=== PATIENT | female | born 1970 | race American Indian/Alaskan Native ===

== ENCOUNTER 2017-01-08 06:03 | Inpatient (IN) | payer BC, OTHER ==
[2016-12-31 10:01] LABS: Basophils % (Auto) 0.5 % (0.0-1.8); Eosinophils % (Auto) 1.4 % (0.0-4.3); Hematocrit 44.9 % (30.3-42.9); Hemoglobin 14.5 gm/dl (10.1-14.3); Mean Corpuscular HGB Conc 32 % (30-34); Mean Corpuscular Hemoglobin 28 pg (28-32); Mean Corpuscular Volume 88 fl (79-97); Platelet Count 186 K/mm3 (140-440); Red Blood Count 5.12 M/mm3 (3.65-5.03); Red Cell Distribution Width 14.9 % (13.2-15.2); White Blood Count 6.3 K/mm3 (4.5-11.0)
[2016-12-31 10:11] LABS: INR 0.96 (0.87-1.13); Partial Thromboplastin Time 31.5 Sec. (24.2-36.6)
[2016-12-31 10:18] LABS: Alanine Aminotransferase 8 units/L (7-56); Albumin 3.6 g/dL (3.9-5); Albumin/Globulin Ratio 1.1 %; Alkaline Phosphatase 76 units/L (35-129); Anion Gap 14 mmol/L; BUN/Creatinine Ratio 11.25; Bilirubin,Total 0.4 mg/dL (0.1-1.2); Blood Urea Nitrogen 9 mg/dL (7-17); Calcium 8.8 mg/dL (8.4-10.2); Carbon Dioxide 25 mmol/L (22-30); Chloride 106.3 mmol/L (98-107); Glucose 81 mg/dL (65-100); Potassium 3.7 mmol/L (3.6-5.0); Sodium 142 mmol/L (137-145); Total Protein 6.9 g/dL (6.3-8.2)
--- NOTE | 2017-01-07 18:03 | Admit Criteria Form ---
Admission Criteria Documentation: AMBULATORY SURGERY EXCEPTION CRITERIA Ambulatory Surgery Exception Criteria ( Place 'X' for any and all applicable criteria): Surgery or procedure performed on ambulatory basis may require inpatient stay for[A] ANY ONE of the following(1)(2)(3)(4)(5)(6)(7)(8)(9): [X] I. A preoperative situation, condition, or finding that warrants inpatient stay as indicated by ANY ONE of the following: [X] a) Inpatient care needed because of severity of a disease or condition rather than the surgery (eg, severe cardiac or respiratory disease, severe infection) (15) (16 ) (17) (18) [] b) Emergent procedure (eg, angioplasty for acute ischemia)(19) [] c) Complex surgical approach or situation as indicated by ANY ONE of the following(3): [] i) Open approach needed instead of usual endoscopic, transcatheter, or other less invasive procedure [] ii) Difficult approach because of previous operation [] iii) Airway monitoring required after open neck procedures(20)(21) [] iv) Large mass requiring unusually extensive dissection [] v) Additional complicating feature requiring inpatient care (eg, drain management)(22(23): [] d) Major surgery in a pt with high anesthetic risk as indicated by ANY ONE of the following (2)(3)(5)(7)(8): [] i) ASA risk class III or higher (severe systemic disease impairing function) [D] [] ii) Advanced age (eg, older than 85 years)(14)(24) [] iii) Symptomatic heart failure(25) [] iv) Symptomatic asthma or COPD(8)(21) [] v) Morbid obesity with hemodynamic or respiratory problems(20)( 21)(26)(27) [] vi) Obstructive sleep apnea(20)(21) [] vii) Former premature infants who are younger than 60 weeks [] viii) High risk for severe postoperative abnormalities (eg, severe postoperative hypocalcemia after parathyroidectomy for severe hyperparathyroidism)(27)( 28) [] ix) Unstable angina(25) [] e) Drug-related risk requiring inpatient stay as indicated by ANY ONE of the following(5)(10)(14)(32)(33) [] i) Procedure requires discontinuing drugs or other therapy (eg , antiarrhythmic medication, antiseizure medication), which necessitates inpatient observation or treatment.(18)(31) [] ii) Major surgery and high risk drug use as indicated by ANY ONE of the following: [] 1) Active abuse of cocaine or similar drug [] 2) Monoamine oxidase inhibitor use [] 3) Other drug identified as posing risk [] f) Inadequate outpatient care situation as indicated by ANY ONE of the following(5)(10)(14)(32)(33) [] i) Patient lives remote from medical facility and procedure has urgent complication potential, and temporary nearby residence cannot be arranged [] ii) Patient will have postprocedure incapacitation and inadequate assistance at home, or alternative level of care cannot be arranged. [] iii) Patient will have long general anesthesia or procedure side effect resolution time, and competent person to stay with patient on first postoperative night at home or alternative level of care cannot be arranged. []iv) Other inadequate outpatient situation that cannot be handled by other means [] II. A perioperative event, condition, or finding that warrants inpatient stay as indicated by ANY ONE of the following (1)(2)(3): [] a) Inadequate physiologic recovery: cardiovascular, respiratory, or hemodynamic status not normal or near preoperative baseline(18) [] b) Hemodynamic instability [] c) Patient not alert with near normal or baseline mental status [] d) Temperature not normal or as expected and not appropriate for outpatient treatment of condition [] e) Ambulatory or appropriate activity level status not yet achieved post procedure [E](34)(35)(36) [] f) Operative site not appropriate (eg, unexpected or excessive drainage or bleeding) [] g) Postoperative effects not resolved or adequately managed (eg, significant pain or vomiting not appropriate for outpatient or next level of care)(10)(12) [] h) Complicating features requiring inpatient care as indicated by ANY ONE of the following(37): [] i) Severe complications of procedure (eg, bowel injury, airway compromise, vascular injury,severe hemorrhage) [] ii) Extensive (eg, dissection far beyond usual scope of procedure ) or prolonged (eg, 120 minutes beyond usual) surgery needed requiring inpatient postoperative care [] iii) Conversion to an open or complex procedure that requires inpatient care (eg, open vs laparoscopic cholecystectomy, abdominal vs vaginal hysterectomy)(38) [] iv) Comorbid condition or test result identified during or post procedure that requires inpatient care (7) [] v) Malignant hyperthermia(30) [] vi) Other complicating feature requiring inpatient care(22)(23) Inpatient stay may be needed until ALL of the following are present (1)(2)(3)(4) (5)(6)(10)(14)(33)(40): []a) Physiologic recovery: cardiovascular, respiratory, and hemodynamic status normal or near preoperative baseline []b) Hemodynamic stability []c) Patient alert, with near normal or baseline mental status []d) Temperature appropriate: patient afebrile or temperature appropriate for outpt treatment of condition []e) Activity level appropriate: ambulatory or appropriate activity level post procedure []f) Operative site appropriate as indicated by ALL of the following: []i) Site dry or with expected drainage []ii) Any blood noted is as expected for procedure. []g) Postoperative effects resolved or managed as indicated by ALL of the following: []i) Pain management appropriate for outpatient (or next level of) care(10) []ii) Minimal nausea and vomiting: if present, successfully treated with oral medication(12) []iii) Headache, dizziness, or drowsiness (if present) are mild. []h) Voiding status acceptable as indicated by ANY ONE of the following: []i) Voiding spontaneously []ii) No voiding but instructions given for follow-up in 6 to 8 hours []iii) Urinary catheter in place, and instructions given for follow-up []i) Complicating features requiring inpatient care manageable at a lower level of care(37) []j) Comorbid conditions manageable at a lower level of care(37) The original [employer] content created by [employer] has been revised. The portions of the content which have been revised are identified through the use of italic text or in bold, and [email or web address] has neither reviewed nor approved the modified material. All other unmodified content is copyright [employer]. Please see references footnoted in the original [employer] edition 2016 Admission Criteria Met: Yes
[~2017-01-08 06:03] MED LIST: NEURONTIN PO NR; PEPCID PO NR; VANCOMYCIN/NS 1 GM/250 ML 1 GM/250 ML BAG IV NR; VERSED IV NR
[2017-01-08] MEDS ORDERED: NACL BACTERIOSTATIC INFILTRATI ONE (06:38)
[2017-01-08] MEDS ORDERED: XYLOCAINE MPF 2% ONE (06:40)
[2017-01-08] MEDS ORDERED: DILAUDID ONE (06:40)
[2017-01-08] MEDS ORDERED: DIPRIVAN 10 MG/ML IV ONE (06:40)
[2017-01-08] MEDS: NACL 0.9% 1000 ML 1,000 ML IV SCH ×2 (06:54→14:25)
--- NOTE | 2017-01-08 07:03 | Anesthesia Day of Surgery ---
Anesthesia Day of Surgery - Day of Surgery Patient Examined: Yes Patient H&P Reviewed: Yes Patient is NPO: Yes
--- NOTE | 2017-01-08 07:09 | Anesthesia Consultation ---
Anesthesia Consult and Med Hx - Airway Anesthetic Teeth Evaluation: Good ROM Head & Neck: Adequate Mental/Hyoid Distance: Adequate Mallampati Class: Class II Intubation Access Assessment: Probably Good - Pulmonary Exam CTA: Yes - Cardiac Exam Cardiac Exam: RRR - Pre-Operative Health Status ASA Pre-Surgery Classification: ASA2 Proposed Anesthetic Plan: Epidural, Spinal Nerve Block: Femoral - Pulmonary Hx Smoking: No Hx Sleep Apnea: No (DUSTIN PRE SCREEN LOW RISK) - Cardiovascular System Hx Hypertension: No - Other Systems Hx Cancer: No Hx Obesity: Yes (BMI >40) - Additional Comments Anesthesia Medical History Comments: NPO after MN. BMI >40. No prior anesthesia complications
[2017-01-08] MEDS ORDERED: MARCAINE-EPI 0.5%-1:200,000 INFILTRATI ONE ×2 (07:11→09:27)
[2017-01-08] MEDS ORDERED: DECADRON ONE ×2 (07:11→08:05)
[2017-01-08] MEDS ORDERED: MORPHINE ONE (07:28)
[2017-01-08] MEDS ORDERED: TRANEXAMIC ACID ONE (07:30)
[2017-01-08] MEDS ORDERED: CLONIDINE 1,000 MCG/10 ML VIAL EP ONE (07:30)
[2017-01-08] MEDS ORDERED: ZOFRAN ONE (08:05)
[2017-01-08] MEDS ORDERED: NEO SYNEPHRINE/NS Syringe(OR USE) IV ONE (08:35)
[2017-01-08] MEDS ORDERED: ePHEDrine SULFATE ONE (09:10)
[2017-01-08] MEDS ORDERED: NACL P/F VIAL (10 ML) 10 ML ONE (09:10)
[2017-01-08] MEDS ORDERED: NACL 0.9% IR ONE (09:25)
[2017-01-08] MEDS ORDERED: NEOSPORIN GU IR ONE (09:25)
[2017-01-08] MEDS ORDERED: MORPHINE IM ONE ×2 (09:26)
[2017-01-08] MEDS ORDERED: DEPO-MEDROL INTRA-ARTI ONE ×2 (09:26)
[2017-01-08] MEDS ORDERED: TORADOL IV ONE ×2 (09:26)
[2017-01-08] MEDS ORDERED: NACL IRRIGATION ONE (09:27)
[2017-01-08] MEDS ORDERED: VANCOMYCIN VIAL IRRIGATION ONE (09:35)
--- NOTE | 2017-01-08 10:53 | Procedure Note ---
Date of procedure: 01/08/17 Pre-op diagnosis: bilateral DJD of the knee; Chronic syniovitis Post-op diagnosis: same Procedure: Bilateral TKR; Complete knee synovectomy Surgeon: DARRIUS MATHIAS Dental Service Technician: JUAN ALBERTO REYNA Estimated blood loss: minimal Pathology: none Specimen disposition: discarded Condition: stable Disposition: floor
[2017-01-08] MEDS ORDERED: DULCOLAX PR PRN (11:00)
[2017-01-08] MEDS ORDERED: PHENERGAN PR PRN (11:00)
[2017-01-08] MEDS ORDERED: ZOFRAN IV PRN (11:00)
[2017-01-08] MEDS ORDERED: SODIUM CHLORIDE FLUSH SYRINGE 10 ML IV PRN (11:00)
[2017-01-08] MEDS ORDERED: LACTATED RINGERS 1,000 ML ONE ×2 (11:22→12:30)
[2017-01-08] MEDS ORDERED: TYLENOL PO PRN (11:30)
[2017-01-08] MEDS ORDERED: MILK OF MAGNESIA PO PRN (11:30)
[2017-01-08] MEDS ORDERED: PERCOCET 5/325 PO PRN (12:00)
--- NOTE | 2017-01-08 12:03 | Post Anesthesia Evaluation ---
- Post Anesthesia Evaluation Patient Participated: Yes Airway Patent: Yes Stable Respiratory Function: Yes Nausea/Vomiting: No Temp > 96.8F: Yes Pain Manageable: Yes Adequeate Hydration: Yes Anesthesia Complications: No
[2017-01-08] MEDS: ANCEF/NS 1 GM/50 ML 1 GM/50 ML BAG IV SCH ×2 (14:26→22:35)
[2017-01-08] MEDS: D5NS 1,000 ML IV SCH (14:55)
--- NOTE | 2017-01-08 17:23 | Consultation ---
History of Present Illness - Reason for Consult Consult date: 01/08/17 Medical management Requesting physician: DARRIUS MATHIAS - History of Present Illness Bilateral TKR; Complete knee synovectomy -Post op doing well Past History Past Medical History: arthritis Past Surgical History: total knee replacement Social history: no significant social history, lives with family Family history: no significant family history Medications and Allergies Allergies Allergy/AdvReac Type Severity Reaction Status Date / Time No Known Allergies Allergy Verified 12/26/16 17:36 Home Medications Medication Instructions Recorded Confirmed Last Taken Type Ibuprofen [Motrin 800 MG tab] 800 mg PO PRN PRN 12/26/16 01/08/17 12/30/16 History Chrom Mynor/Brindal Trinh [Garcinia 1 tab PO BID 01/08/17 01/08/17 12/29/16 History Cambogia Tablet] Chromium/Herbal Complex No.238 1 tab PO BID 01/08/17 01/08/17 12/29/16 History [Green Tea Caplet] Active Meds: Active Medications Acetaminophen (Tylenol) 650 mg PO Q4H PRN PRN Reason: Pain MILD(1-3)/Fever >100.5/REZA Acetaminophen/Hydrocodone Bitart ([place] 5/325) 1 each PO Q6H PRN PRN Reason: Pain, Moderate (4-6) Bisacodyl (Dulcolax) 10 mg NE QDAY PRN PRN Reason: Constip unreliev by MOM/or NPO Celecoxib (Celebrex) 200 mg PO PREOP NR Stop: 01/08/17 23:59 Last Admin: 01/08/17 06:43 Dose: 200 mg Celecoxib (Celebrex) 100 mg PO BID MIT[facility]LL Docusate Sodium (Colace) 100 mg PO BID MIT[facility]LL Enoxaparin Sodium (Lovenox) 40 mg SUB-Q QDAY [facility] Famotidine (Pepcid) 20 mg PO PREOP NR Stop: 01/08/17 23:59 Last Admin: 01/08/17 06:42 Dose: 20 mg Gabapentin (Neurontin) 600 mg PO PREOP NR Stop: 01/08/17 23:52 Last Admin: 01/08/17 06:42 Dose: 600 mg Vancomycin HCl (Vancomycin/Ns 1 Gm/250 Ml) 1 gm in 250 mls @ 167.007 mls/hr IV PREOP NR PRN Reason: Protocol Stop: 01/08/17 23:59 Last Admin: 01/08/17 07:15 Dose: 167.007 mls/hr Sodium Chloride (Nacl 0.9% 1000 Ml) 1,000 mls @ 75 mls/hr IV DIRECT MITCHELL Last Admin: 01/08/17 14:25 Dose: 75 mls/hr Cefazolin Sodium (Ancef/Ns 1 Gm/50 Ml) 1 gm in 50 mls @ 100 mls/hr IV Q8H [facility]LL Stop: 01/08/17 20:29 Last Admin: 01/08/17 14:26 Dose: 100 mls/hr Dextrose/Sodium Chloride (D5ns) 1,000 mls @ 125 mls/hr IV DIRECT MITCHELL Last Admin: 01/08/17 14:55 Dose: 125 mls/hr Magnesium Hydroxide (Milk Of Magnesia) 30 ml PO Q4H PRN PRN Reason: Constipation Midazolam HCl (Versed) 2 mg IV PREOP NR Stop: 01/08/17 23:59 Last Admin: 01/08/17 07:14 Dose: 2 mg Morphine Sulfate (Morphine) 2 mg IV Q4H PRN PRN Reason: Pain, Moderate (4-6) Morphine Sulfate (Morphine) 4 mg IV Q4H PRN PRN Reason: Pain , Severe (7-10) Multivitamins (Theragran Tab) 1 each PO QDAY [facility] Ondansetron HCl (Zofran) 4 mg IV Q8H PRN PRN Reason: Nausea And Vomiting Last Admin: 01/08/17 14:26 Dose: 4 mg Oxycodone HCl (Oxycontin) 10 mg PO Q12HR [facility] Oxycodone/Acetaminophen (Percocet 5/325) 1 tab PO Q6H PRN PRN Reason: Pain, Moderate (4-6) Promethazine HCl (Phenergan) 25 mg NE Q6H PRN PRN Reason: Nausea And Vomiting Sodium Chloride (Sodium Chloride Flush Syringe 10 Ml) 10 ml IV PRN PRN PRN Reason: LINE FLUSH Stop: 01/18/17 10:59 Zolpidem Tartrate (Ambien) 5 mg PO QHS PRN PRN Reason: Sleep Review of Systems All systems: negative Constitutional: no weight loss, no weight gain Ears, nose, mouth and throat: no nasal congestion, no nasal discharge, no sinus pressure, no sinus pain Cardiovascular: no chest pain, no orthopnea, no palpitations Respiratory: no cough, no cough with sputum, no excessive sputum, no hemoptysis Gastrointestinal: no abdominal pain, no nausea, no vomiting, no diarrhea, no constipation Genitourinary Female: no flank pain, no dysuria, no urinary frequency, no urgency Musculoskeletal: no neck stiffness, no neck pain Integumentary: no rash, no pruritis, no redness Neurological: no seizures, no syncope Psychiatric: no suicidal ideation, no depression Endocrine: no cold intolerance, no heat intolerance, no polyphagia, no excessive thirst Hematologic/Lymphatic: no easy bruising, no easy bleeding Allergic/Immunologic: no urticaria, no allergic rhinitis, no wheezing Exam - Constitutional Vitals: Temp Pulse Resp BP Pulse Ox 97.7 F 70 18 102/60 98 01/08/17 15:51 01/08/17 15:51 01/08/17 15:51 01/08/17 15:51 01/08/17 13:00 General appearance: Present: no acute distress, well-nourished - EENT Eyes: Present: PERRL ENT: hearing intact, clear oral mucosa - Neck Neck: Present: supple, normal ROM - Respiratory Respiratory effort: normal Respiratory: bilateral: CTA - Cardiovascular Heart Sounds: Present: S1 & S2. Absent: rub, click - Extremities Extremities: pulses symmetrical, No edema Peripheral Pulses: within normal limits - Abdominal General gastrointestinal: Present: soft, non-tender, non-distended, normal bowel sounds Female genitourinary: Present: normal - Integumentary Integumentary: Present: clear, warm, dry - Musculoskeletal Musculoskeletal: gait normal, strength equal bilaterally - Psychiatric Psychiatric: appropriate mood/affect, intact judgment & insight - Neurologic Neurologic: CNII-XII intact, moves all extremities Results - Labs CBC & Chem 7: 12/31/16 09:40 12/31/16 09:40 Assessment and Plan - Patient Problems (1) Acute arthritis Current Visit: Yes Status: Chronic Plan to address problem: NSAIDS as necessary (2) Status post total knee replacement, bilateral Current Visit: Yes Status: Acute Plan to address problem: PT/pain management (3) DVT prophylaxis Current Visit: Yes Status: Acute Plan to address problem: On SCD's
[2017-01-08] MEDS ORDERED: AMBIEN PO PRN (22:00)
--- NOTE | 2017-01-08 23:14 | Operative Report ---
PREOPERATIVE DIAGNOSES: 1. Bilateral osteoarthritis of the knee. 2. Chronic synovitis. 3. Obesity. POSTOPERATIVE DIAGNOSES: 1. Bilateral osteoarthritis of the knee. 2. Chronic synovitis. 3. Obesity. PROCEDURE: 1. Total knee replacement arthroplasty on the right with complete synovectomy. 2. Total knee replacement on the left with complete synovectomy. SURGEON: Polo Hatch MD. DATA ANALYST REPORT WRITER: Alvaro Muniz MD SECOND DATA ANALYST REPORT WRITER: Bridger Galindo RN ANESTHESIA: Local block, general. COMPLICATIONS: None. INDICATIONS: This patient is a patient who has been seen and following the office for quite some time, who has severe degenerative arthritis of both knee joints, the patient is being seen and following the office conservatively for the last three years; however, the patient has symptoms that have gotten progressively worse. The patient is indicated for replacement arthroplasty of the knee. The patient understands that because of her age, the patient may require an eventual exploration of the knee and redo arthroplasty in the future. PROCEDURE IN DETAIL: Once the patient was in the surgical room, a time-out was carried out to identify the patient and procedure. Once it was done, the patient was prepped and draped in usual fashion for prepping both lower extremities. Tourniquets were placed high up in the legs. Once this was carried out, the right leg was elevated. The tourniquet inflated to 350 mmHg. The procedure was then done. The procedure was carried out on the right knee, making a straight incision in the front of the knee. ____. Dissection carried out to allow full exposure of the medial and lateral parapatellar area of the knee. A long medial parapatellar incision was carried out entering the joint. The patella was released, following this, the patient underwent appropriate releases to mobilize the patella, following that, the patient underwent a complete synovectomy of the knee. The synovium of the knee was quite angry and swollen, once resected by separation of the synovial layer from the capsule of the knee joint. It was done in a sequential basis beginning on the top and dissection was done to the medial and lateral gutters. Once this area was removed from the joint, the patella was everted and the knee brought in place and placed in flexion. The finishing of the synovectomy was to be done once the central portion of the knee was cut. Using the [employer] knee system, the procedure was continued by drilling a hole in the center portion of the femur. Following this, by the insertion of the central intramedullary guide for the femur, however, the femur was measured and cut to a size 72.5. Following that, the procedure was continued by the insertion of a lamina suction plate roller hand, cleaning out of the menisci and loose bodies in the front and the center portion of the knee joint, following that, the tibia was cut. The tibia was cut and prepared using the extramedullary guide. The tibia was cut to a size 75. Once this was done, the lamina suction plate roller hand was placed in the center of the joint and the completion of synovectomy was done. The patella was measured and cut to a size 31. Once this was carried out, trialing of the knee was carried out with trialing of components and it was decided that the 14 tibial bearing fitted the best. Once this was done, all the components were removed from the joint. The knee was irrigated. The knee was infiltrated with dilute solution of Marcaine and the posterior aspect of the gutters, following that, using acrylic cement, fixation of all the components into the joint was done. Once the knee was fully assembled and put through full range of motion, the knee was found to be stable both in flexion and extension. The patella tracked well. The procedure was continued at this point by using tranexamic acid 1 gram 30 mL of saline solution for irrigation followed by closure of the knee capsule with #1 Vicryl in multiple interrupted sutures. The subcutaneous tissues were closed in the same fashion. The skin was closed with skin clips. Once this was carried out compression bandage was applied. The knee was infiltrated with morphine, Depo-Medrol. At this point, the procedure was carried out to the left knee. The table was draped and redraped, and following that, the knee was placed in flexion, this second knee on the posterior in the left was carried out. The knee was elevated, exsanguination carried out the incision made in the similar procedure with a long medial parapatellar incision was carried out into the joint. The synovectomy of the knee on the left knee was carried out in the same fashion. Using the [employer] instrumentation, the femur was cut to a size 70, the tibia to a size 75, the patella to a size 31 with a 12 mm tibial bearing. After irrigation and cleaning out of the joint this component were inserted into the medial knee and the knee was ensembled and fixed in position. The procedure was then continued by closure of the knee joint in the same fashion with tranexamic acid, #1 Vicryl, #2-0 Vicryl and skin clips. Once it was carried out, a long knee brace were applied with a coat of compression bandage. The patient supported procedure well. There were no complications. JOB# [id number] CINTIA/KIESHA
[2017-01-09] MEDS: COLACE PO SCH ×3 (00:29→21:55)
[2017-01-09] MEDS: NORCO 5/325 PO PRN ×3 (00:47→17:30)
[2017-01-09] MEDS: OxyCONTIN PO SCH ×3 (05:58→21:55)
[2017-01-09] MEDS: D5NS 1,000 ML IV SCH (06:05)
--- NOTE | 2017-01-09 10:02 | Progress Note ---
Subjective Date of service: 01/09/17 Objective Vital signs: Vital Signs - 12hr 01/09/17 01/09/17 01/09/17 00:01 00:47 08:00 Temperature 97.8 F 97.7 F Pulse Rate [ 70 Right From Monitor] Respiratory 16 18 Rate Blood Pressure 136/50 [Left Arm] O2 Sat by Pulse 95 Oximetry 01/09/17 08:10 Temperature Pulse Rate [ Right From Monitor] Respiratory Rate Blood Pressure [Left Arm] O2 Sat by Pulse 98 Oximetry - Labs CBC & BMP: 12/31/16 09:40 12/31/16 09:40
[2017-01-09] MEDS: MORPHINE IV PRN ×3 (10:30→21:00)
[2017-01-09] MEDS: THERAGRAN Tab PO SCH (11:51)
[2017-01-09] MEDS: LOVENOX SUB-Q SCH (11:53)
--- NOTE | 2017-01-09 14:03 | Consultation ---
History of Present Illness - Reason for Consult Consult date: 01/09/17 Evaluate for Acute IRU - History of Present Illness 46 y.o. morbidly obese female admitted for bilateral TKA. Pt reports progressively worsening pain in bilateral knees due to severe degenerative arthritis; failed outpatient conservative treatment. Pt is POD#1 bilateral TKA. Pt reports some lightheadedness with initial standing on today; pain rated 9/10. Also reports poor appetite. Pt was able to participate with PT on today. Consult requested for post-acute placement recommendations. Past History Past Medical History: arthritis Past Surgical History: hysterectomy, total knee replacement (bilateral) Social history: lives with family (sons). denies: smoking, alcohol abuse Family history: diabetes, hypertension Medications and Allergies Allergies Allergy/AdvReac Type Severity Reaction Status Date / Time No Known Allergies Allergy Verified 12/26/16 17:36 Home Medications Medication Instructions Recorded Confirmed Last Taken Type Ibuprofen [Motrin 800 MG tab] 800 mg PO PRN PRN 12/26/16 01/08/17 12/30/16 History Chrom Mynor/Brindal Trinh [Garcinia 1 tab PO BID 01/08/17 01/08/17 12/29/16 History Cambogia Tablet] Chromium/Herbal Complex No.238 1 tab PO BID 01/08/17 01/08/17 12/29/16 History [Green Tea Caplet] Active Meds: Active Medications Acetaminophen (Tylenol) 650 mg PO Q4H PRN PRN Reason: Pain MILD(1-3)/Fever >100.5/REZA Acetaminophen/Hydrocodone Bitart ([place] 5/325) 1 each PO Q6H PRN PRN Reason: Pain, Moderate (4-6) Last Admin: 01/09/17 11:49 Dose: 1 each Bisacodyl (Dulcolax) 10 mg ID QDAY PRN PRN Reason: Constip unreliev by MOM/or NPO Celecoxib (Celebrex) 100 mg PO BID [facility] Last Admin: 01/09/17 11:47 Dose: 100 mg Docusate Sodium (Colace) 100 mg PO BID [facility] Last Admin: 01/09/17 11:51 Dose: 100 mg Enoxaparin Sodium (Lovenox) 40 mg SUB-Q QDAY [facility] Last Admin: 01/09/17 11:53 Dose: 40 mg Sodium Chloride (Nacl 0.9% 1000 Ml) 1,000 mls @ 75 mls/hr IV DIRECT [facility] Last Admin: 01/08/17 14:25 Dose: 75 mls/hr Dextrose/Sodium Chloride (D5ns) 1,000 mls @ 125 mls/hr IV DIRECT [facility] Last Admin: 01/09/17 06:05 Dose: 125 mls/hr Magnesium Hydroxide (Milk Of Magnesia) 30 ml PO Q4H PRN PRN Reason: Constipation Morphine Sulfate (Morphine) 2 mg IV Q4H PRN PRN Reason: Pain, Moderate (4-6) Morphine Sulfate (Morphine) 4 mg IV Q4H PRN PRN Reason: Pain , Severe (7-10) Multivitamins (Theragran Tab) 1 each PO QDAY [facility] Last Admin: 01/09/17 11:51 Dose: 1 each Ondansetron HCl (Zofran) 4 mg IV Q8H PRN PRN Reason: Nausea And Vomiting Last Admin: 01/08/17 14:26 Dose: 4 mg Oxycodone HCl (Oxycontin) 10 mg PO Q12HR [facility] Last Admin: 01/09/17 11:50 Dose: 10 mg Oxycodone/Acetaminophen (Percocet 5/325) 1 tab PO Q6H PRN PRN Reason: Pain, Moderate (4-6) Promethazine HCl (Phenergan) 25 mg ID Q6H PRN PRN Reason: Nausea And Vomiting Sodium Chloride (Sodium Chloride Flush Syringe 10 Ml) 10 ml IV PRN PRN PRN Reason: LINE FLUSH Stop: 01/18/17 10:59 Zolpidem Tartrate (Ambien) 5 mg PO QHS PRN PRN Reason: Sleep Review of Systems All systems: negative Constitutional: poor appetite Ears, nose, mouth and throat: no headache Cardiovascular: lightheadedness, no chest pain Gastrointestinal: no nausea, no vomiting Genitourinary Female: other (zendejas in place) Musculoskeletal: gait dysfunction, other (bilateral post-op knee pain; RLE swelling>LLE) Exam - Constitutional Vitals: Vital Signs - 12hr 01/09/17 01/09/17 08:00 08:10 Temperature 97.7 F Pulse Rate [ 70 Right From Monitor] Respiratory 18 Rate Blood Pressure 136/50 [Left Arm] O2 Sat by Pulse 95 98 Oximetry General appearance: no acute distress, obese - EENT Eyes: EOM intact ENT: hearing intact - Neck Neck: supple, normal ROM - Respiratory Respiratory effort: normal Respiratory: bilateral: CTA - Cardiovascular Rhythm: regular Heart Sounds: Present: S1 & S2 - Extremities Extremity abnormal: edema (RLE>LLE), other (Bilateral knee immobilizers with post-op dressings remain in place; intact ankle DF/PF bilaterally; moves UE without difficulty) - Gastrointestinal General gastrointestinal: Present: soft, non-tender, non-distended, normal bowel sounds - Neurologic Neurologic: CNII-XII intact - Psychiatric Psychiatric: appropriate mood/affect, intact judgment & insight, memory intact, cooperative - Allied health notes Allied health notes reviewed: PT (maxA fro transfers; min/CGA 80 feet with RW) FIMS assesment as documented by PT/OT/ST: Locomotion- walk/wheelchair Ambulation Distance 0 - Labs CBC & Chem 7: 12/31/16 09:40 12/31/16 09:40 Assessment and Plan Patient was assessed and evaluated for Acute Inpatient Rehab Unit. 46 y.o. morbidly obese female s/p bilateral TKAs secondary to bilateral OA. Pt is noted to have functional deficits with mobility and would benefit from IRU admission to address strengthening, ROM, gait training, stairs, self cares. Pt has been participating well in PT and is thought to be able to tolerate 3 hours of therapy/day, 5 days per week; she has good overall medical prognosis and is thought to be able to make good functional improvement to return home at discharge. Pt was independent with functional mobility and self cares prior to admission; now requires maxA for transfers, min/CGA for gait with RW; currently a falls risk. Pt will require pre-certification and this will be initiated on today. Will continue to follow. Thank you for consultation. - Patient Problems (1) Acute arthritis Current Visit: Yes Status: Chronic (2) Status post total knee replacement, bilateral Current Visit: Yes Status: Acute (3) Unsteady gait Current Visit: Yes Status: Acute (4) Morbid obesity due to excess calories Current Visit: Yes Status: Acute
--- NOTE | 2017-01-09 15:08 | Progress Note ---
Subjective Date of service: 01/09/17 Interval history: 1st POD after bilateral knee replacement Patient is in the bed, relatively comfortable. Pain is mostly controlled with pain meds. Ambulated with physical therapist. No nausea or vomiting. No anesthesia complications Objective - Constitutional Vitals: Vital Signs - 12hr 01/09/17 01/09/17 01/09/17 08:00 08:10 10:30 Temperature 97.7 F Pulse Rate [ 70 Right From Monitor] Respiratory 18 20 Rate Blood Pressure 136/50 [Left Arm] O2 Sat by Pulse 95 98 Oximetry 01/09/17 13:55 Temperature Pulse Rate [ Right From Monitor] Respiratory 20 Rate Blood Pressure [Left Arm] O2 Sat by Pulse Oximetry - Labs CBC & Chem 7: 12/31/16 09:40 12/31/16 09:40
--- NOTE | 2017-01-09 22:14 | Progress Note ---
Assessment and Plan Assessment and plan: 1. OA bilat knee - s/p bilat knee replaceent 01/08; started PT today; on pain control medications 2. Obesity - counseled regarding importance of losing weight and lifestyle changes 3. DVT prophylaxis - lovenox History Interval history: s/p bilat knee replacement; c/o pain after working with PT Hospitalist Physical - Constitutional Vitals: Temp Pulse Resp BP Pulse Ox 98.9 F 78 20 101/56 97 01/09/17 15:55 01/09/17 15:55 01/09/17 17:30 01/09/17 15:55 01/09/17 20:40 General appearance: Present: no acute distress, obese - EENT Eyes: Present: EOM intact - Neck Neck: Present: supple, normal ROM. Absent: masses or JVD - Respiratory Respiratory effort: normal Respiratory: bilateral: CTA, negative: rhonchi, wheezing - Cardiovascular Rhythm: regular Heart Sounds: Present: S1 & S2. Absent: systolic murmur - Extremities Extremities: no ischemia - Integumentary Integumentary: Present: warm, dry. Absent: jaundice, rash - Psychiatric Psychiatric: cooperative - Neurologic Neurologic: no focal deficits, other (limited ROM due to pain) Results - Labs CBC & Chem 7: 12/31/16 09:40 12/31/16 09:40 Labs: Laboratory Last Values WBC 6.3 K/mm3 (4.5-11.0) 12/31/16 09:40 RBC 5.12 M/mm3 (3.65-5.03) H 12/31/16 09:40 Hgb 14.5 gm/dl (10.1-14.3) H 12/31/16 09:40 Hct 44.9 % (30.3-42.9) H 12/31/16 09:40 MCV 88 fl (79-97) 12/31/16 09:40 MCH 28 pg (28-32) 12/31/16 09:40 MCHC 32 % (30-34) 12/31/16 09:40 RDW 14.9 % (13.2-15.2) 12/31/16 09:40 Plt Count 186 K/mm3 (140-440) 12/31/16 09:40 Lymph % (Auto) 27.5 % (13.4-35.0) 12/31/16 09:40 Henry % (Auto) 9.6 % (0.0-7.3) H 12/31/16 09:40 Eos % (Auto) 1.4 % (0.0-4.3) 12/31/16 09:40 Baso % (Auto) 0.5 % (0.0-1.8) 12/31/16 09:40 Lymph # 1.7 K/mm3 (1.2-5.4) 12/31/16 09:40 Henry # 0.6 K/mm3 (0.0-0.8) 12/31/16 09:40 Eos # 0.1 K/mm3 (0.0-0.4) 12/31/16 09:40 Baso # 0.0 K/mm3 (0.0-0.1) 12/31/16 09:40 Seg Neutrophils % 61.0 % (40.0-70.0) 12/31/16 09:40 Seg Neutrophils # 3.9 K/mm3 (1.8-7.7) 12/31/16 09:40 PT 12.7 Sec. (12.2-14.9) 12/31/16 09:40 INR 0.96 (0.87-1.13) 12/31/16 09:40 APTT 31.5 Sec. (24.2-36.6) 12/31/16 09:40 Sodium 142 mmol/L (137-145) 12/31/16 09:40 Potassium 3.7 mmol/L (3.6-5.0) 12/31/16 09:40 Chloride 106.3 mmol/L (98-107) 12/31/16 09:40 Carbon Dioxide 25 mmol/L (22-30) 12/31/16 09:40 Anion Gap 14 mmol/L 12/31/16 09:40 BUN 9 mg/dL (7-17) 12/31/16 09:40 Creatinine 0.8 mg/dL (0.7-1.2) 12/31/16 09:40 Estimated GFR > 60 ml/min 12/31/16 09:40 BUN/Creatinine Ratio 11.25 % 12/31/16 09:40 Glucose 81 mg/dL (65-100) 12/31/16 09:40 Calcium 8.8 mg/dL (8.4-10.2) 12/31/16 09:40 Total Bilirubin 0.4 mg/dL (0.1-1.2) 12/31/16 09:40 AST 12 units/L (5-40) 12/31/16 09:40 ALT 8 units/L (7-56) 12/31/16 09:40 Alkaline Phosphatase 76 units/L (35-129) 12/31/16 09:40 Total Protein 6.9 g/dL (6.3-8.2) 12/31/16 09:40 Albumin 3.6 g/dL (3.9-5) L 12/31/16 09:40 Albumin/Globulin Ratio 1.1 % 12/31/16 09:40
[2017-01-10] MEDS: MORPHINE IV PRN ×2 (03:00→09:29)
[2017-01-10] MEDS: COLACE PO SCH (09:02)
[2017-01-10] MEDS: OxyCONTIN PO SCH (09:03)
[2017-01-10] MEDS: LOVENOX SUB-Q SCH (09:04)
[2017-01-10] MEDS: THERAGRAN Tab PO SCH (09:04)
[2017-01-10] MEDS: NORCO 5/325 PO PRN (13:35)
--- NOTE | 2017-01-10 14:18 | Progress Note ---
Assessment and Plan alert orientated, OOB; s/p Bilateral TKR Wounds Ok, pain well controlled. Doing well Waiting for Rehab Subjective Date of service: 01/10/17 Objective Vital signs: Vital Signs - 12hr 01/10/17 08:00 Temperature 98.1 F Pulse Rate [ 80 Right From Monitor] Respiratory 18 Rate Blood Pressure 129/65 [Right Arm] O2 Sat by Pulse 98 Oximetry - Labs CBC & BMP: 12/31/16 09:40 12/31/16 09:40
[2017-01-10 15:55] VITALS: BP 134/72
== END 2017-01-10 18:00 | DRG 462 ==
LOC: 3A 06:03 → 2B-SURG 11:31
PROC: 0SRD0J9 Replacement of Left Knee Joint with Synthetic Substitute, Cemented, Open Approach (ICD-10-PCS; principal; 2017-01-08)
PROC: 0SRC0J9 Replacement of Right Knee Joint with Synthetic Substitute, Cemented, Open Approach (ICD-10-PCS; 2017-01-08)
PROC: 0SBD0ZZ Excision of Left Knee Joint, Open Approach (ICD-10-PCS; 2017-01-08)
PROC: 0SBC0ZZ Excision of Right Knee Joint, Open Approach (ICD-10-PCS; 2017-01-08)
DX: M17.0 Bilateral primary osteoarthritis of knee (principal); Z68.41 Body mass index [BMI] 40.0-44.9, adult; R26.81 Unsteadiness on feet; E66.01 Morbid (severe) obesity due to excess calories; M65.88 Other synovitis and tenosynovitis, other site; Z90.710 Acquired absence of both cervix and uterus; Z82.49 Family history of ischemic heart disease and other diseases of the circulatory system; Z83.3 Family history of diabetes mellitus; Z71.3 Dietary counseling and surveillance
CPT/HCPCS: 36415; 62324; 64450; 80053; 85025; 85610; 85730; 88305; 94760; A4217; C1776; J0690; J0735; J1030; J1100; J1170; J1650; J1885; J2250; J2270; J2370; J2405; J2704; J3370; J7030; J7042; J7120

== ENCOUNTER 2017-01-10 21:49 | Inpatient (IN) | payer BC ==
[2017-01-10] MEDS ORDERED: MILK OF MAGNESIA PO PRN (21:53)
[2017-01-10] MEDS ORDERED: TYLENOL PO PRN (21:53)
[2017-01-10] MEDS ORDERED: DULCOLAX PR PRN (21:53)
[2017-01-10] MEDS ORDERED: AMBIEN PO PRN (21:56)
[2017-01-10] MEDS: OxyCONTIN PO SCH (23:33)
[2017-01-10] MEDS: COLACE FEEDTUBE SCH (23:36)
[2017-01-11 05:17] LABS: Basophils % (Auto) 0.5 % (0.0-1.8); Eosinophils % (Auto) 2.4 % (0.0-4.3); Hematocrit 33.5 % (30.3-42.9); Hemoglobin 11.2 gm/dl (10.1-14.3); Mean Corpuscular HGB Conc 33 % (30-34); Mean Corpuscular Hemoglobin 28 pg (28-32); Mean Corpuscular Volume 84 fl (79-97); Platelet Count 172 K/mm3 (140-440); Red Blood Count 3.97 M/mm3 (3.65-5.03); Red Cell Distribution Width 14.2 % (13.2-15.2); White Blood Count 8.8 K/mm3 (4.5-11.0)
[2017-01-11 05:35] LABS: Alanine Aminotransferase 11 units/L (7-56); Alkaline Phosphatase 77 units/L (35-129); Anion Gap 13 mmol/L; Bilirubin,Total 0.5 mg/dL (0.1-1.2); Blood Urea Nitrogen 4 mg/dL (7-17); Carbon Dioxide 25 mmol/L (22-30); Chloride 103.7 mmol/L (98-107); Glucose 103 mg/dL (65-100); Potassium 3.5 mmol/L (3.6-5.0); Sodium 138 mmol/L (137-145); Total Protein 5.9 g/dL (6.3-8.2)
[2017-01-11] MEDS: OxyCONTIN PO SCH ×2 (09:27→21:01)
[2017-01-11] MEDS: LOVENOX SUB-Q SCH (09:27)
[2017-01-11] MEDS: COLACE FEEDTUBE SCH ×2 (09:28→21:01)
[2017-01-11] MEDS: THERAGRAN Tab PO SCH (09:28)
--- NOTE | 2017-01-11 12:10 | History and Physical Report ---
History of Present Illness Date: 01/11/17 Referring Facility: [facility] Date of admission: 01/10/17 21:49 Chief Complaint: Bilateral TKAs secondary to osteoarthritis History of present illness: POST ADMISSION PHYSICIAN EVALUATION ONSET DATE: 01/08/2017 IMPAIRMENT GROUP CODE: 08.62 ETIOLOGIC DIAGNOSIS: Bilateral TKAs secondary to osteoarthritis STATUS CHANGES SINCE PREADMISSION SCREENING: PAS has been reviewed. In comparison, pt is with improved pain control; improved appetite. Pt was able to participate in therapy evaluations; no further lightheadedness with standing. Noted drop in H/H, however remains within normal range (14.5/44.9--> 11.2/33.5). Pt continues with functional deficits; remains an appropriate candidate for IPR course. PREVIOUS FUNCTIONAL STATUS: Independent with ADLs, gait, transfers CURRENT FUNCTIONAL STATUS: min/CGA for gait with gait training HPI 46 y.o. morbidly obese female admitted for bilateral TKA. Pt reports progressively worsening pain in bilateral knees due to severe degenerative arthritis; failed outpatient conservative treatment. Post-op course significant for mild lightheadedness with initial standing; post op pain at bilateral knees. Pt is now admitted for aggressive therapies and ongoing medical management. Past History Past Medical History: arthritis Past Surgical History: hysterectomy, total knee replacement (bilateral) Social history: lives with family (sons). denies: smoking, alcohol abuse Family history: diabetes, hypertension Medications and Allergies Allergies Allergy/AdvReac Type Severity Reaction Status Date / Time No Known Allergies Allergy Verified 12/26/16 17:36 Home Medications Medication Instructions Recorded Confirmed Last Taken Type Ibuprofen [Motrin 800 MG tab] 800 mg PO PRN PRN 12/26/16 01/08/17 12/30/16 History Chrom Mynor/Brindal Trinh [Garcinia 1 tab PO BID 01/08/17 01/08/17 12/29/16 History Cambogia Tablet] Chromium/Herbal Complex No.238 1 tab PO BID 01/08/17 01/08/17 12/29/16 History [Green Tea Caplet] Active Meds: Active Medications Acetaminophen (Tylenol) 650 mg PO Q4H PRN PRN Reason: Pain MILD(1-3)/Fever >100.5/REZA Bisacodyl (Dulcolax) 10 mg [place] QDAY PRN PRN Reason: Constipation unrelieved by MOM Celecoxib (Celebrex) 100 mg PO BID [facility] Last Admin: 01/11/17 09:30 Dose: 100 mg Docusate Sodium (Colace) 100 mg FEEDTUBE BID [facility] Last Admin: 01/11/17 09:28 Dose: 100 mg Enoxaparin Sodium (Lovenox) 40 mg SUB-Q QDAY [facility] Last Admin: 01/11/17 09:27 Dose: 40 mg Magnesium Hydroxide (Milk Of Magnesia) 30 ml PO Q4H PRN PRN Reason: Constipation Multivitamins (Theragran Tab) 1 each PO QDAY [facility] Last Admin: 01/11/17 09:28 Dose: 1 each Oxycodone HCl (Oxycontin) 10 mg PO Q12HR [facility] Last Admin: 01/11/17 09:27 Dose: 10 mg Oxycodone/Acetaminophen (Percocet 5/325) 2 tab PO Q4H PRN PRN Reason: Pain, Moderate (4-6) Senna (Senokot) 8.6 mg PO Q12H PRN PRN Reason: Laxative Effect Zolpidem Tartrate (Ambien) 5 mg PO QHS PRN PRN Reason: Sleep Review of Systems All systems: negative Constitutional: poor appetite (improving) Respiratory: no cough, no shortness of breath Gastrointestinal: constipation, no nausea, no vomiting Musculoskeletal: gait dysfunction, other (post-op knee pain) Exam - Constitutional General appearance: no acute distress, obese, other (sitting up in bed) - EENT Eyes: EOM intact ENT: hearing intact - Neck Neck: supple, normal ROM - Respiratory Respiratory effort: normal Respiratory: bilateral: CTA - Cardiovascular Rhythm: regular Heart Sounds: Present: S1 & S2 - Extremities Extremity abnormal: edema (BLE), other (fariha in place to bilateral knees; no active drainage; mild redness at fariha; intact ankle DF/PF; BUE WNL) - Gastrointestinal General gastrointestinal: Present: soft, non-tender, non-distended, normal bowel sounds - Neurologic Neurologic: CNII-XII intact, other (sensation grossly intact) - Psychiatric Psychiatric: appropriate mood/affect, intact judgment & insight, memory intact, cooperative - Labs CBC & Chem 7: 01/11/17 04:51 01/11/17 04:51 Labs: Laboratory Results - last 72 hr 01/11/17 01/11/17 04:51 04:51 WBC 8.8 RBC 3.97 Hgb 11.2 Hct 33.5 MCV 84 MCH 28 MCHC 33 RDW 14.2 Plt Count 172 Lymph % (Auto) 17.5 Frio % (Auto) 9.7 H Eos % (Auto) 2.4 Baso % (Auto) 0.5 Lymph # 1.6 Frio # 0.9 H Eos # 0.2 Baso # 0.0 Seg Neutrophils % 69.9 Seg Neutrophils # 6.2 Sodium 138 Potassium 3.5 L Chloride 103.7 Carbon Dioxide 25 Anion Gap 13 BUN 4 L Creatinine 0.5 L Estimated GFR > 60 BUN/Creatinine Ratio 8.00 Glucose 103 H Calcium 8.0 L Total Bilirubin 0.5 AST 17 ALT 11 Alkaline Phosphatase 77 Total Protein 5.9 L Albumin 3.0 L Albumin/Globulin Ratio 1.0 Assessment and Plan Assessment and plan: 46 y.o. morbidly obese female s/p bilateral TKA secondary to severe degenerative arthritis. The patient is medically stable, however, requires ongoing medical management. Pt is appropriate for inpatient rehabilitation admission and is thought to be able to tolerate at least 3 hours of therapy a day, 5 days a week including 1.5 hours of physical therapy and 1.5 hours of occupational therapy. Patient is able to understand and follow basic directions and has attainable rehab goals. Potential barriers/complications include falls, DVT, PE, contracture, infection, anemia, hypotension, syncope, uncontrolled pain. Plan 1. Rehabilitation- Pt will undergo multidisciplinary/integrative rehab PT/OT, Nursing. Areas to be addressed include, but are not limited to PT for mobility , strengthening, transfer training, ROM, endurance, stairs, balance; OT for ADLs , household tasks, adaptive equipment; Nursing for carryover of therapies, pain control, education, skin integrity, medication management, bowel/bladder management; Nutrition as needed; social services analyst for discharge planning and equipment needs. Potential interventions include appropriate assistive device or adaptive equipment. Expected overall level of functional improvement by discharge is [place] for ADLs, gait, transfers. Pt will tentatively be discharged home with outpatient PT. Estimated length of stay is 7-10 days. 2. s/p bilateral TKAs- pain control; follow wounds; prn ice 3. unsteady gait- ongoing PT 4. hypokalemia- Kdur x1 5. recheck labs on Saturday - Patient Problems (1) Status post total knee replacement, bilateral Current Visit: No Status: Acute (2) Unsteady gait Current Visit: No Status: Acute (3) Hypokalemia Current Visit: Yes Status: Acute (4) Morbid obesity due to excess calories Current Visit: No Status: Acute
[2017-01-11] MEDS ORDERED: K-DUR PO ONE (17:00)
[2017-01-12] MEDS: PERCOCET 5/325 PO PRN ×3 (06:10→18:35)
[2017-01-12] MEDS: OxyCONTIN PO SCH ×2 (10:03→22:01)
[2017-01-12] MEDS: LOVENOX SUB-Q SCH (10:03)
[2017-01-12] MEDS: THERAGRAN Tab PO SCH (10:03)
[2017-01-12] MEDS: COLACE FEEDTUBE SCH ×2 (10:03→22:01)
[2017-01-12] MEDS: SENOKOT PO PRN ×2 (10:04→22:01)
--- NOTE | 2017-01-12 20:16 | Event Note ---
Date: 01/12/17 Late entry; Pt seen this afternoon after lunch heading to PT gym, reports pain is improving. Vitals stable; tolerating therapies well. Continue current plan of care.
--- NOTE | 2017-01-12 20:19 | IRU Plan of Care ---
Interdisciplinary Plan of Care - IP IRU INTERDISCIPLINARY PLAN: [facility] Inpatient Rehab Unit Plan of Care IRU Interdisciplinary Care Plan Start: 01/10/17 22: 46 Freq: Admission then PRN Status: Active Document 01/12/17 17:16 DB (Rec: 01/12/17 17:20 DB [id number]) Interdisciplinary Problem List Interdisciplinary Problem List Interdisciplinary Problem List Impaired Bathing/Grooming Query Text:Answers will Trigger Problems Impaired Dressing and Outcomes on Worklist. Impaired Mobility Impaired Transfers Impaired Toileting Pain Management Knowledge Deficits Impaired Home Management Impaired Safety Medications Education IRU Interdisciplinary Care Plan Therapy Services Therapy Services Will Include: Physical Therapy Query Text:Patient will be seen for a Occupational Therapy minimum of 3 hours of daily therapy 5 out of 7 days a week. Therapy intensity may be adjusted within a 7 consecutive day period to effectively serve the individual needs of the patient. Treatment Frequency/Intensity/Duration Treatment Frequency 5 days per week Treatment Intensity 1.5 hours per discipline (PT/OT ) daily Treatment Duration 10-14 days Problem Area: Eating/Swallowing Eating/Swallowing Outcomes Eating/Swallowing Interventions Problem Area: Bathing/Grooming Bathing/Grooming Outcomes Improve [place] w/ Grooming Improve [place] w/ Bathing Bathing/Grooming Interventions ADL Training Therapeutic Activity Neuromuscular Re-Education Balance Work Activity Tolerance Work Patient/Caregiver Education Problem Area: Dressing Dressing Outcomes Improve [place] w/ UB Dressing Improve [place] w/ LB Dressing Dressing Interventions ADL Training Neuromuscular Re-Education Balance Work Patient/Caregiver Education Problem Area: Mobility Mobility Outcomes Improve [place] w/ Bed Mobility Improve [place] w/ Ambulation Improve [place] w/ Stairs /Curb Improve [place] w/ Wheelchair Mobility Interventions Therapeutic Exercise Neuromuscular Re-Ed. Patient/Caregiver Education Bed Mobility Work Gait Training W/C Mobility Work Problem Area: Transfers Transfers Outcomes Improve [place] w/ Bed Transfers Improve [place] w/ Toilet Transfers Improve [place] w/ Tub/ Shower Transfers Improve [place] w/ Car Transfers Transfers Interventions Transfer Training Therapeutic Exercise Neuromuscular Re-Education Activity Tolerance Work Patient/Caregiver Education Problem Area: Bowel/Bladder Managment Bowel/Bladder Outcomes Bowel/Bladder Interventions Problem Area: Toileting Toileting Outcomes Improve [place] w/ Toileting Toileting Interventions ADL Training Balance Work Use of Assistive Devices Patient/Caregiver Education Problem Area: Nutrition Nutrition Outcomes Understand and Comply w/ Diet Improve/Maintain Oral Intake Nutrition Interventions Monitor Nutrient Intake Problem Area: Comprehension Comprehension Outcomes Comprehension Interventions Problem Area: Expression Expression Outcomes Expression Interventions Problem Area: Problem Solving Problem Solving Outcomes Problem Solving Interventions Problem Area: Memory Memory Outcomes Memory Interventions Problem Area: Pain Management Pain Management Outcomes Demonstrate/Verbalize Pain Strategies Pain Management Interventions Medication Management Positioning/Turning Patient/Caregiver Education Problem Area: Knowledge Deficits Knowledge Deficits Outcomes Verbalize Precautions Knowledge Deficits Interventions Medication Use Education Body Mechanics/Joint Protection Education Disease Management Education Health Maintainence Education Safety Education Problem Area: Skin/Tissue Integrity Skin/Tissue Integrity Outcomes Exhibit Healing of Wound/ Incision Skin/Tissue Integrity Interventions Skin/Wound Care Pressure Relief Instruction Problem Area: Social Interaction Social Interaction Outcomes Social Interaction Interventions Problem Area: Adjustment to Disability Adjustment to Disability Outcomes Adjustment to Disability Interventions Problem Area: Discharge Concerns Discharge Concerns Outcomes Discharge Home w/ Necessary Equipment Have Home Health/Outpatient Services Discharge Concerns Interventions Discharge Planning Family/Caregiver Conference Family/Caregiver Training Problem Area: Community Reintegration Community Reintegration Outcomes Demonstrate Understanding of Community Resources Community Reintegration Interventions Provide Community Resources Problem Area: Home Management Home Management Outcomes Improve [place] w/ Home Management Home Management Interventions Meal Preparation Clothing Care Activity Tolerance Work Patient/Caregiver Education Problem Area: Safety Safety Outcomes Provide Safe Environment Perform Selfcare Safely Safety Interventions Identify Fall Risk Eva Pt. to Environment Reduce Environmental Hazards Problem Area: Medication Education Medication Education Outcomes Patient/Caregiver will Verbalize Understanding of Medications Medication Education Interventions Explain Administration/Side Effects/Interactions Problem Area: Diabetes Education Diabetes Education Outcomes Diabetes Education Interventions Problem Area: Oxygenation Oxygenation Outcomes Oxygenation Interventions Problem Area: Cardiovascular Cardiovascular Outcomes Cardiovascular Interventions Physician Only Medical Prognosis and Rehabilitation Patient demonstrates good Potential (Completed by Physician) rehab potential. Medical Prognosis: Good This plan of care has been developed based on the findings from the pre- admission assessment, post admission physician evaluation, information gathered from the assessments from all therapy disciplines and other pertinent clinicians. The plan of care has been reviewed and discussed in collaboration with the interdisciplinary team. The plan of care will be reviewed and updated at least weekly. 46 y.o. morbidly obese female s/p bilateral TKA secondary to severe degenerative arthritis. The patient remains at risk for falls, DVT, PE, contracture, infection, anemia, hypotension, syncope, uncontrolled pain. Will continue to follow labs periodically during course; blood pressure remains stable; pain controlled. Will monitor hypokalemia. Pt is tolerating therapies and remains an appropriate candidate for IRU admission.
[2017-01-13] MEDS: OxyCONTIN PO SCH ×2 (09:05→22:32)
[2017-01-13] MEDS: THERAGRAN Tab PO SCH (09:06)
[2017-01-13] MEDS: COLACE FEEDTUBE SCH ×2 (09:07→22:32)
[2017-01-13] MEDS: LOVENOX SUB-Q SCH (09:07)
[2017-01-13] MEDS: PERCOCET 5/325 PO PRN ×2 (10:12→18:07)
[2017-01-14 06:39] LABS: Hematocrit 37.9 % (30.3-42.9); Hemoglobin 12.6 gm/dl (10.1-14.3); Mean Corpuscular HGB Conc 33 % (30-34); Mean Corpuscular Hemoglobin 28 pg (28-32); Mean Corpuscular Volume 85 fl (79-97); Platelet Count 299 K/mm3 (140-440); Red Blood Count 4.45 M/mm3 (3.65-5.03); Red Cell Distribution Width 14.7 % (13.2-15.2); White Blood Count 9.6 K/mm3 (4.5-11.0)
[2017-01-14 06:50] LABS: Anion Gap 15 mmol/L; Blood Urea Nitrogen 6 mg/dL (7-17); Calcium 8.9 mg/dL (8.4-10.2); Carbon Dioxide 27 mmol/L (22-30); Glucose 115 mg/dL (65-100); Potassium 4.1 mmol/L (3.6-5.0); Sodium 139 mmol/L (137-145)
[2017-01-14] MEDS: COLACE FEEDTUBE SCH ×2 (09:02→22:32)
[2017-01-14] MEDS: THERAGRAN Tab PO SCH (09:02)
[2017-01-14] MEDS: PERCOCET 5/325 PO PRN ×3 (09:03→23:41)
[2017-01-14] MEDS: LOVENOX SUB-Q SCH (09:04)
[2017-01-14] MEDS: OxyCONTIN PO SCH ×2 (12:27→22:31)
--- NOTE | 2017-01-14 16:28 | Progress Note ---
Assessment and Plan 46 y.o. morbidly obese female s/p bilateral TKA secondary to severe degenerative arthritis - s/p bilateral TKAs- pain control; follow wounds; prn ice - unsteady gait- ambulating well with PT - hypokalemia- resolved - constipation- senna QHS; colace BID - labs reviewed - Patient Problems (1) Status post total knee replacement, bilateral Current Visit: No Status: Acute (2) Unsteady gait Current Visit: No Status: Acute (3) Morbid obesity due to excess calories Current Visit: No Status: Acute (4) Constipation by delayed colonic transit Current Visit: Yes Status: Acute Subjective Date of service: 01/14/17 Principal diagnosis: bilateral TKAs Interval history: Pt seen today in room, F/U IPR course, bilateral TKAs. Still no BM; will add senna QHS; no nausea/vomiting; pain stable Objective - Constitutional Vitals: Vital Signs - 12hr 01/14/17 01/14/17 01/14/17 08:00 09:03 10:03 Temperature 98.4 F Pulse Rate [ 81 Right Brachial] Respiratory 20 20 20 Rate Respiratory Rate [Left Knee ] Respiratory Rate [Right Knee] Blood Pressure 138/78 [Right Arm] O2 Sat by Pulse 100 Oximetry 01/14/17 01/14/17 01/14/17 12:27 13:27 14:46 Temperature Pulse Rate [ Right Brachial] Respiratory 20 18 20 Rate Respiratory Rate [Left Knee ] Respiratory Rate [Right Knee] Blood Pressure [Right Arm] O2 Sat by Pulse Oximetry 01/14/17 14:49 Temperature Pulse Rate [ Right Brachial] Respiratory Rate Respiratory 20 Rate [Left Knee ] Respiratory 20 Rate [Right Knee] Blood Pressure [Right Arm] O2 Sat by Pulse Oximetry General appearance: Present: no acute distress, obese - EENT Eyes: EOM intact ENT: hearing intact - Neck Neck: supple, normal ROM - Respiratory Respiratory effort: normal Respiratory: bilateral: CTA - Cardiovascular Rhythm: regular Heart Sounds: Present: S1 & S2 Extremity abnormal: edema (slightly improved) - Gastrointestinal General gastrointestinal: Present: soft, non-tender, non-distended, normal bowel sounds - Neurologic Neurologic: CNII-XII intact, moves all extremities - Psychiatric Psychiatric: appropriate mood/affect, intact judgment & insight, memory intact, cooperative - Allied health notes Allied health notes reviewed: PT (SBA-Kalen for transfers; SBA-CGA for gait), OT (SBA for transfers) - Labs CBC & Chem 7: 01/14/17 06:03 01/14/17 06:03 Labs: Abnormal lab results 01/14/17 Range/Units 06:03 BUN 6 L (7-17) mg/dL Glucose 115 H (65-100) mg/dL
[2017-01-14] MEDS: SENOKOT PO SCH (22:32)
[2017-01-15] MEDS: PERCOCET 5/325 PO PRN ×2 (06:36→11:55)
[2017-01-15] MEDS: LOVENOX SUB-Q SCH (09:31)
[2017-01-15] MEDS: THERAGRAN Tab PO SCH (09:31)
[2017-01-15] MEDS: OxyCONTIN PO SCH ×2 (09:32→21:12)
[2017-01-15] MEDS: COLACE FEEDTUBE SCH ×2 (09:32→21:21)
--- NOTE | 2017-01-15 17:30 | Progress Note ---
Assessment and Plan 46 y.o. morbidly obese female s/p bilateral TKA secondary to severe degenerative arthritis - s/p bilateral TKAs- pain controlled; wounds healing well - unsteady gait- CGA for gait - constipation- resolved; continue bowel regimen - team conference held on today- independent for eating, Ilir for grooming, dressing, toileting, toilet transfers, wheelchair mobility; SBA for bathing; supervision for shower transfers; Kalen for sit-stand transfers; ambulating 145 feet CGA with RW. Barriers- decreased ROM at bilateral knees, LE swelling, stairs. Anticipate d/c by 01/18 - Patient Problems (1) Status post total knee replacement, bilateral Current Visit: No Status: Acute (2) Unsteady gait Current Visit: No Status: Acute (3) Morbid obesity due to excess calories Current Visit: No Status: Acute Subjective Date of service: 01/15/17 Principal diagnosis: bilateral TKAs Interval history: Pt seen today in room, F/U IPR course, bilateral TKAs. +BM overnight; pain stable Objective - Constitutional Vitals: Vital Signs - 12hr 01/15/17 01/15/17 01/15/17 07:36 07:40 08:00 Temperature 97.9 F Pulse Rate [ 98 H Right Brachial] Respiratory 20 20 Rate Respiratory 20 Rate [Left Knee ] Respiratory 20 Rate [Right Knee] Blood Pressure 124/84 [Right Arm] O2 Sat by Pulse 97 Oximetry 01/15/17 01/15/17 01/15/17 09:31 09:32 10:31 Temperature Pulse Rate [ Right Brachial] Respiratory 20 20 20 Rate Respiratory Rate [Left Knee ] Respiratory Rate [Right Knee] Blood Pressure [Right Arm] O2 Sat by Pulse Oximetry 01/15/17 01/15/17 01/15/17 11:55 12:55 16:00 Temperature 98.4 F Pulse Rate [ 91 H Right Brachial] Respiratory 20 18 20 Rate Respiratory Rate [Left Knee ] Respiratory Rate [Right Knee] Blood Pressure 151/74 [Right Arm] O2 Sat by Pulse 100 Oximetry General appearance: Present: no acute distress, obese, other (sitting up in bed) - EENT Eyes: EOM intact ENT: hearing intact - Neck Neck: supple, normal ROM - Respiratory Respiratory effort: normal Extremity abnormal: edema (BLE), other (bilateral knee incision- healing well; fariha remain intact) - Neurologic Neurologic: CNII-XII intact, moves all extremities - Psychiatric Psychiatric: appropriate mood/affect, intact judgment & insight, memory intact, cooperative - Labs CBC & Chem 7: 01/14/17 06:03 01/14/17 06:03
[2017-01-15] MEDS: SENOKOT PO SCH (20:58)
[2017-01-16] MEDS: PERCOCET 5/325 PO PRN ×2 (06:20→18:59)
[2017-01-16] MEDS: THERAGRAN Tab PO SCH (07:57)
[2017-01-16] MEDS: COLACE FEEDTUBE SCH (07:58)
[2017-01-16] MEDS: LOVENOX SUB-Q SCH (07:59)
[2017-01-16] MEDS: OxyCONTIN PO SCH ×2 (10:15→22:53)
[2017-01-16] MEDS: CLARITIN PO SCH (11:30)
[2017-01-16] MEDS ORDERED: ZITHROMAX PO ONE (12:00)
--- NOTE | 2017-01-16 17:30 | Progress Note ---
Assessment and Plan 46 y.o. morbidly obese female s/p bilateral TKA secondary to severe degenerative arthritis - s/p bilateral TKAs- pain controlled; wounds healing well - unsteady gait- resume PT in AM - fever- ? sinus infection; start zithromycin and claritin - abdominal pain- d/c colace and senna; follow - therapies held due to nausea and abdominal pain; anticipate resuming in AM - check CBC in AM - Patient Problems (1) Status post total knee replacement, bilateral Current Visit: No Status: Acute (2) Unsteady gait Current Visit: No Status: Acute (3) Morbid obesity due to excess calories Current Visit: No Status: Acute Subjective Date of service: 01/16/17 Principal diagnosis: bilateral TKAs Interval history: Pt seen today in room, F/U IPR course, bilateral TKAs. +fever overnight; reports congestion and post-nasal drip; later complained of abdominal pain and nausea Objective - Constitutional Vitals: Vital Signs - 12hr 01/16/17 08:49 Temperature 98.8 F Pulse Rate [ 86 Right Brachial] Respiratory 18 Rate Blood Pressure 130/72 [Right Arm] General appearance: Present: no acute distress, obese - EENT Eyes: EOM intact ENT: hearing intact - Neck Neck: supple, normal ROM - Respiratory Respiratory effort: normal Extremity abnormal: other (no drainage at bilateral incisions; healing well) - Neurologic Neurologic: CNII-XII intact, moves all extremities - Psychiatric Psychiatric: cooperative (flat affect) - Allied health notes Allied health notes reviewed: OT (Ilir for LB dressing and grooming) - Labs CBC & Chem 7: 01/14/17 06:03 01/14/17 06:03
[2017-01-16] MEDS ORDERED: PHENERGAN PO PRN (22:36)
[2017-01-17 06:22] LABS: Hematocrit 34.5 % (30.3-42.9); Hemoglobin 11.5 gm/dl (10.1-14.3); Mean Corpuscular HGB Conc 33 % (30-34); Mean Corpuscular Hemoglobin 29 pg (28-32); Mean Corpuscular Volume 86 fl (79-97); Platelet Count 311 K/mm3 (140-440); Red Blood Count 4.03 M/mm3 (3.65-5.03); Red Cell Distribution Width 14.6 % (13.2-15.2); White Blood Count 9.9 K/mm3 (4.5-11.0)
[2017-01-17] MEDS: LOVENOX SUB-Q SCH (09:09)
[2017-01-17] MEDS: CLARITIN PO SCH (09:10)
[2017-01-17] MEDS: THERAGRAN Tab PO SCH (09:10)
[2017-01-17] MEDS: ZITHROMAX PO SCH (09:10)
[2017-01-17] MEDS: PERCOCET 5/325 PO PRN ×2 (10:09→14:57)
[2017-01-17] MEDS: OxyCONTIN PO SCH ×2 (10:11→21:34)
--- NOTE | 2017-01-17 14:18 | Progress Note ---
Assessment and Plan 46 y.o. morbidly obese female s/p bilateral TKA secondary to severe degenerative arthritis - s/p bilateral TKAs- pain controlled; wounds healing well - unsteady gait- able to resume therapies on today - fever- resolved; pt with history of sinus infections in the past; continue 5 day course of zithromax and claritin - abdominal pain- resolved - CBC- WNL - family training completed on today; tentative d/c home on tomorrow - Patient Problems (1) Status post total knee replacement, bilateral Current Visit: No Status: Acute (2) Unsteady gait Current Visit: No Status: Acute (3) Morbid obesity due to excess calories Current Visit: No Status: Acute Subjective Date of service: 01/17/17 Principal diagnosis: bilateral TKAs Interval history: Pt seen today in room, F/U IPR course, bilateral TKAs. no further fever, abdominal pain or nausea; improved congestion and headache; family present for family training Objective - Constitutional General appearance: Present: no acute distress, obese - EENT Eyes: EOM intact ENT: hearing intact - Neck Neck: supple, normal ROM - Respiratory Respiratory effort: normal - Neurologic Neurologic: CNII-XII intact, moves all extremities - Psychiatric Psychiatric: appropriate mood/affect, intact judgment & insight, memory intact, cooperative - Allied health notes Allied health notes reviewed: PT (observed ambulating with PT during family training using RW) - Labs CBC & Chem 7: 01/17/17 04:12 01/14/17 06:03
[2017-01-18] MEDS: PERCOCET 5/325 PO PRN ×2 (08:10→12:43)
[2017-01-18] MEDS: LOVENOX SUB-Q SCH (08:12)
[2017-01-18] MEDS: THERAGRAN Tab PO SCH (08:13)
[2017-01-18] MEDS: CLARITIN PO SCH (08:13)
[2017-01-18] MEDS: ZITHROMAX PO SCH (08:13)
[2017-01-18 08:20] VITALS: BP 134/84
--- NOTE | 2017-01-18 10:25 | Discharge Summary ---
Providers - Providers Date of Admission: 01/10/17 21:49 Date of discharge: 01/18/17 Attending physician: PEGGY BEDOYA 01/10/17 21:53 Occupational Therapy Evaluate and Treat [CONS] Routine Comment: Reason For Exam: bilateral TKA Physical Therapy Evaluation and Treat [CONS] Routine Comment: Reason For Exam: bilateral TKA Primary care physician: Dr. Christiana Todd Hospitalization Reason for admission: s/p bilateral TKA Condition: Stable Hospital course: 46 y.o. morbidly obese female admitted to [facility] for bilateral TKA due to progressively worsening pain in bilateral knees from severe degenerative arthritis. Post-op course significant for mild lightheadedness with initial standing; post op pain at bilateral knees. Pt was admitted for aggressive therapies and ongoing medical management. Pt tolerated IRU Course well; notable events include ?sinus infection just prior to discharge which pt responded well to initiation of oral ABX and claritin. Pain remained controlled ; initial constipation resolved. Functionally, pt initially required Kalen/CGA for bed mobility and gait 75 feet with RW; modA for transfers; s/u for grooming and UB dressing; modA for bathing; Kalen for LB dressing and toileting. At the time of discharge, pt has progressed to Ilir to supervision with ADLs; Ilir for gait, transfers, wheelchair mobility; supervision for curbs and stairs. Family training was completed with sons and ; pt is stable for d/c home on today. >30 mins spent on discharge process; medication reconciliation; education on safety; pt educated on need to wean off oxycontin as instructed; pt has F/U appt scheduled with Ortho on Saturday, 01/21 Disposition: DISCHARGED TO HOME OR SELFCARE - Discharge Diagnoses (1) Status post total knee replacement, bilateral Status: Acute (2) Unsteady gait Status: Acute (3) Morbid obesity due to excess calories Status: Acute Core Measure Documentation - Palliative Care Palliative Care/ Comfort Measures: Not Applicable - Core Measures Any of the following diagnoses?: none Exam - Constitutional Vitals: Temp Pulse Resp BP Pulse Ox 98.2 F 96 H 16 134/84 99 01/18/17 08:16 01/18/17 08:16 01/18/17 08:16 01/18/17 08:16 01/18/17 08:16 General appearance: Present: no acute distress, obese - EENT Eyes: Present: EOM intact ENT: hearing intact - Neck Neck: Present: supple, normal ROM - Respiratory Respiratory effort: normal - Extremities Extremity abnormal: edema (stable), other (fariha remain intact to BL knees; minimal/scant bloody drainage) - Psychiatric Psychiatric: appropriate mood/affect, intact judgment & insight, memory intact, cooperative - Neurologic Neurologic: CNII-XII intact, moves all extremities Plan Activity: no driving until cleared by PCP, up only with assistance Weight Bearing Status: Weight Bear as Tolerated Diet: regular Wound: keep clean and dry, change dressing Special Instructions: physical therapy ([facility]) Durable Medical Equipment Needed Upon Discharge: Walker-Rolling, Bedside Commode , other (tub bench; [facility]) Follow up with: PRIMARY CAREMD [Primary Care Provider] - 7 Days DARRIUS MATHIAS MD [Staff Physician] - 7 Days Prescriptions: Aspirin [Aspirin TAB] 325 mg PO BID #60 tablet Azithromycin [Zithromax TAB] 250 mg PO QDAY #2 tablet Celecoxib [celeBREX] 100 mg PO BID #60 capsule oxyCODONE /ACETAMINOPHEN [Percocet 5/325 mg] 2 tab PO Q4H PRN #60 tablet PRN Reason: Pain, Moderate (4-6) oxyCODONE ER [OxyCONTIN ER TAB] 10 mg PO Q12HR #10 tablet
[2017-01-18] MEDS: OxyCONTIN PO SCH (12:39)
== END 2017-01-18 15:00 | disposition home or self-care (01) | DRG 554 ==
LOC: 3B 21:49
PROVIDERS: ADMIT Family Medicine; ATTEND Family Medicine
DX: M17.0 Bilateral primary osteoarthritis of knee (principal); Z68.41 Body mass index [BMI] 40.0-44.9, adult; E87.6 Hypokalemia; K59.00 Constipation, unspecified; R26.81 Unsteadiness on feet; E66.01 Morbid (severe) obesity due to excess calories; Z96.653 Presence of artificial knee joint, bilateral; Z90.710 Acquired absence of both cervix and uterus; Z83.3 Family history of diabetes mellitus; Z82.49 Family history of ischemic heart disease and other diseases of the circulatory system
CPT/HCPCS: 36415; 80048; 80053; 85025; 85027; J1650; Q0169